=== PATIENT | male | born 1960 | race American Indian/Alaskan Native ===

== ENCOUNTER 2016-07-17 21:47 | Emergency (ER) | payer SELFPAY ==
--- NOTE | 2016-07-18 03:06 | Emergency Department Report ---
HPI - General Chief Complaint: Extremity Injury, Upper Time Seen by Provider: 07/18/16 02:50 - HPI HPI: Patient is a 55-year-old male who presents to ED complaining of laceration to his left third digit finger. Patient states he was placing some plywood when the saw got caught his finger. She states laceration bled for a couple minutes and applied some pressure and bleeding stopped. Patient states he takes no medications and has no drug allergies. Patient denies fever/chills/nausea/vomiting/any other problems. ED Past Medical Hx - Past Medical History Previous Medical History?: No - Surgical History Past Surgical History?: No - Medications Home Medications: Home Medications Medication Instructions Recorded Confirmed Last Taken Type Cephalexin [Keflex] 500 mg PO Q12HR #10 cap 07/18/16 Unknown Rx Ibuprofen [Motrin] 800 mg PO Q8HR PRN #30 tablet 07/18/16 Unknown Rx oxyCODONE /ACETAMINOPHEN [Percocet 1 tab PO Q6HR PRN #20 tablet 07/18/16 Unknown Rx 5/325] ED Review of Systems ROS: Stated complaint: FINGER LAC Other details as noted in HPI Constitutional: denies: chills, fever Eyes: denies: eye pain, eye discharge, vision change ENT: denies: ear pain, throat pain Respiratory: denies: cough, shortness of breath, wheezing Cardiovascular: denies: chest pain, palpitations Endocrine: no symptoms reported Gastrointestinal: denies: abdominal pain, nausea, vomiting, diarrhea Genitourinary: denies: urgency, dysuria Musculoskeletal: denies: back pain, joint swelling, arthralgia Skin: other (laceration to third finger). denies: rash, lesions Neurological: denies: headache, weakness, paresthesias Psychiatric: denies: anxiety, depression Hematological/Lymphatic: denies: easy bleeding, easy bruising Physical Exam - Physical Exam Vital Signs: Vital Signs 07/17/16 22:20 Temperature 98.3 F Pulse Rate 71 Respiratory 18 Rate Blood Pressure 161/105 O2 Sat by Pulse 99 Oximetry Physical Exam: GENERAL: Alert and oriented x3, no apparent distress, Normal Gait, atraumatic. HEAD: Head is normocephalic and a-traumatic. EYES: Extra ocular muscles are intact. Pupils are equal, round, and reactive to light and accommodation. EARS: symetrical, atraumatic, gross auditory nml bilaterally. NOSE: Nose symetrical, Nontender,Nares appeared normal. MOUTH:Mouth is well hydrated and without lesions. Patent airways. NECK: Supple. Non edematous, No carotid bruits. No lymphadenopathy or thyromegaly. LUNGS: Symetrical with respiration, No wheezing, no rales or crackles, CTAB. HEART: S1, S2 present, regular rate and rhythm without murmur, no rubs, no gallops. EXTREMITIES/MUSCULOSKELETAL: No cyanosis, clubbing, rash, lesions or edema. Full ROM bilaterally. UE Pulses 2+ bilaterally. UE 5+ strength bilaterally NEUROLOGIC: No focal Deficit, Cranial nerves II through XII are grossly intact. No loss of sensation, SKIN: Warm and dry, No lesions, No ulceration or induration present. Partially amputated skin of the tip to the third finger on the left hand. Properly dressed no bleeding. Finger intact ED Course Vital Signs 07/17/16 22:20 Temperature 98.3 F Pulse Rate 71 Respiratory 18 Rate Blood Pressure 161/105 O2 Sat by Pulse 99 Oximetry ED Medical Decision Making - Radiology Data Radiology results: report reviewed, image reviewed FINAL REPORT PROCEDURE: XR FINGER(S) 2 LT TECHNIQUE: LEFT ring finger radiographs, including AP, lateral, and oblique views. HISTORY: finger injury COMPARISON: No prior studies are available for comparison. FINDINGS: Fracture (s) and/or Dislocation(s): There is a slight cortical irregularity involving the midshaft middle phalanx 4th digit left hand. Nondisplaced fracture in this region is suspected. The remaining osseous structures are intact.. Alignment: Normal. Joint space(s): Normal . Soft tissues: Soft tissue swelling over the mid and distal finger.. Bone mineralization: Normal . Foreign bodies: None . IMPRESSION: Slight cortical irregularity of the midshaft middle phalanx 4th digit left hand may represent a nondisplaced fracture this region. Mild soft tissue swelling over the mid and distal 4th digit. Transcribed By: [facility] Dictated By: ASTON MARLOW MD Electronically Authenticated By: ASTON MARLOW MD Signed Date/Time: 07/18/16 0302 - Medical Decision Making 55-year-old male presents with partially amputated skin of the tip of the finger ED course: Patient received 2 [place] tablets. Patient was administered a tetanus booster. Finger x-ray ordered. Finger x-ray: See above The wound was prepped and draped in sterile fashion. Anesthesia was achieved with 4mL of 1% lidocaine. Digital block of the third digit The wound was irrigated with 100cc NS and explored. There were no foreign bodies Discussed the patient and take medication as discussed. Airways no need for laceration sutures due to partially amputated skin. No bone seen Discussed home medication of normal pain medication, antibiotic. Discussed the patient to follow up with orthopedic doctors referred. Discussed the patient follow up with surgeon as discussed. Discussed wound care with patient. Instruction given on wound care. Discussed the patient to follow instructions to prevent infection. Discussed the patient will follow-up as have dressing changed as needed. Discussed daily change of dressing application of triple antibiotic. Finger intact, no dislocation seen. finger placed in an immobilizer raoul taped to the middle finger. Vital signs stable. Patient is in no acute distress. Critical care attestation.: If time is entered above; I have spent that time in minutes in the direct care of this critically ill patient, excluding procedure time. ED Disposition Clinical Impression: Nondisplaced fracture of phalanx of finger of left hand Finger laceration Qualifiers: Encounter type: initial encounter Qualified Code(s): S61.219A - Laceration without foreign body of unspecified finger without damage to nail, initial encounter Partial traumatic metacarpophalangeal amputation of finger Qualifiers: Encounter type: initial encounter Qualified Code(s): S68.129A - Partial traumatic metacarpophalangeal amputation of unspecified finger, initial encounter Disposition: DISCHARGED TO HOME OR SELFCARE Is pt being admited?: No Does the pt Need Aspirin: No Condition: Stable Instructions: Laceration (ED), Finger Laceration (ED), Finger Fracture (ED), Finger Amputation (ED), Acute Wound Care (ED) Additional Instructions: Keep finger dressing on for 24 hours. Change dressing every day. Applied triple antibiotic ointment 3 times a day. keep finger dry. follow up with orthopedic and hand surgeon doctor has referred Prescriptions: Cephalexin [Keflex] 500 mg PO Q12HR #10 cap Ibuprofen [Motrin] 800 mg PO Q8HR PRN #30 tablet PRN Reason: Pain oxyCODONE /ACETAMINOPHEN [Percocet 5/325] 1 tab PO Q6HR PRN #20 tablet PRN Reason: Pain Referrals: [facility] [Outside] - 3-5 Days TRACE LEE MD [Staff Physician] - 3-5 Days PRIMARY MD JUANITO [Primary Care Provider] - 3-5 Days MICKEY MONCADA MD [Staff Physician] - 3-5 Days VALORIE PINEDA MD [Referring] - 3-5 Days WILFREDO SAAB MD [Staff Physician] - 3-5 Days Forms: Work/School Release Form(ED) Time of Disposition: 04:36
--- NOTE | 2016-07-18 03:11 | XRay Report ---
FINAL REPORT PROCEDURE: XR FINGER(S) 2 LT TECHNIQUE: LEFT ring finger radiographs, including AP, lateral, and oblique views. HISTORY: finger injury COMPARISON: No prior studies are available for comparison. FINDINGS: Fracture (s) and/or Dislocation(s): There is a slight cortical irregularity involving the midshaft middle phalanx 4th digit left hand. Nondisplaced fracture in this region is suspected. The remaining osseous structures are intact.. Alignment: Normal. Joint space(s): Normal . Soft tissues: Soft tissue swelling over the mid and distal finger.. Bone mineralization: Normal . Foreign bodies: None . IMPRESSION: Slight cortical irregularity of the midshaft middle phalanx 4th digit left hand may represent a nondisplaced fracture this region. Mild soft tissue swelling over the mid and distal 4th digit.
[2016-07-18] MEDS ORDERED: NORCO 5/325 PO ONE (03:18)
[2016-07-18] MEDS ORDERED: XYLOCAINE 1% MPF 5 mL INFILTRATI ONE (03:19)
[2016-07-18] MEDS ORDERED: BOOSTRIX IM ONE (03:46)
[2016-07-18] MEDS ORDERED: TRIPLE ANTIBIOTIC TP ONE (05:00)
[2016-07-18 05:57] VITALS: BP 135/78
== END 2016-07-18 05:56 | disposition home or self-care (01) ==
LOC: ED 21:47
DX: S62.603A Fracture of unspecified phalanx of left middle finger, initial encounter for closed fracture (principal); S68.123A Partial traumatic metacarpophalangeal amputation of left middle finger, initial encounter; S61.213A Laceration without foreign body of left middle finger without damage to nail, initial encounter; W23.0XXA Caught, crushed, jammed, or pinched between moving objects, initial encounter; Y93.89 Activity, other specified; Y99.9 Unspecified external cause status; Y92.89 Other specified places as the place of occurrence of the external cause
CPT/HCPCS: 90471; 90715; A6250

== ENCOUNTER 2018-07-14 22:08 | Emergency (ER) | payer OTHER ==
[2018-07-14 22:13] VITALS: BP 98/69
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
[2018-07-14] MEDS ORDERED: IBUPROFEN PO ONE (22:19)
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
== END 2018-07-15 00:56 | disposition home or self-care (01) ==
LOC: ED 22:08
DX: S70.02XA Contusion of left hip, initial encounter (principal); F17.200 Nicotine dependence, unspecified, uncomplicated; V49.9XXA Car occupant (driver) (passenger) injured in unspecified traffic accident, initial encounter; Y93.89 Activity, other specified; Y92.410 Unspecified street and highway as the place of occurrence of the external cause; Y99.8 Other external cause status

== ENCOUNTER 2020-11-05 13:47 | Emergency (ER) | payer SELFPAY ==
[2020-11-05] MEDS ORDERED: MORPHINE 4 MG/1 ML INJ IV ONE (15:46)
[2020-11-05] MEDS ORDERED: oxyCODONE /ACETAMINOPHEN 5-325MG TAB PO ONE (15:46)
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
[2020-11-05] MEDS: ONDANSETRON 4 MG/2 ML INJ IV ONE (17:19)
[2020-11-05 17:23] VITALS: BP 138/92
== END 2020-11-05 17:30 | disposition home or self-care (01) ==
LOC: ED 13:47
DX: S16.1XXA Strain of muscle, fascia and tendon at neck level, initial encounter (principal); S20.219A Contusion of unspecified front wall of thorax, initial encounter; S70.11XA Contusion of right thigh, initial encounter; S09.90XA Unspecified injury of head, initial encounter; F17.200 Nicotine dependence, unspecified, uncomplicated; Z79.899 Other long term (current) drug therapy; V49.49XA Driver injured in collision with other motor vehicles in traffic accident, initial encounter; Y92.410 Unspecified street and highway as the place of occurrence of the external cause; Y93.89 Activity, other specified; Y99.8 Other external cause status
CPT/HCPCS: 70450; 71250; 72125; 73552; 96374; 96375; 99284; J2270; J2405